=== PATIENT | female | born 1960 | race Caucasian/White ===

== ENCOUNTER → 2016-09-27 | Outpatient (CLI) | payer MEDICARE, OTHER ==
[~2016-09-27] MED LIST: ACETAMINOPHEN650 M1 PO; ADDERALL; ADDERALL 20 MG20 M1 PO; ADDERALL 30 MG30 M1 PO; ALBUTEROL17 GM INH; BACTRIM DS TABL1 TA1 PO; CALCIUM 600 MG; CRESTOR10 MG PO; EFFEXOR; EFFEXOR50 MG PO; FLONASE 0.05% N16 G1; FORTAMET1000 MG/B1; KEFLEX500 MG PO; LAMICTAL; LAMICTAL PO; LANTUS SOLOSTAR3 ML SUBQ; LANTUS100 U/M1; LATUDA20 MG PO; LEVEMIR; LIPITOR; LIPITOR40 MG PO; LISINOPRIL-HCTZ1 T14; LISINOPRIL-HCTZ1 T14 PO; LORTAB 5/500 TA1 TA1 PO; LYRICA100 MG PO; LYRICA50 MG PO; METFORMIN HCL1000 M1 PO; NEURONTIN; NEURONTIN600 MG PO; NEURONTIN800 MG PO; ORUDIS75 M1 PO; PERCOCET 10/3251 TAB; SINGULAIR PO; SYMBICORT 16010.2 GM INH; TAB A VITE1 EACH; VISTARIL50 MG PO
[2016-09-27 12:44] LABS: BUN/CREATININE RATIO 37.5; CALCIUM SERUM 9.8 mg/dL (8.4-10.2); CREATININE SERUM 0.8 mg/dL (0.6-1.4); GLOM FILT RATE Estimated 82.5 mL/min (>60); POTASSIUM 4.5 mmol/L (3.5-5.1)
== END | disposition home or self-care (01) ==
LOC: CLAB 11:54
PROVIDERS: Internal Medicine Interventional Cardiology
DX: I10 Essential (primary) hypertension (principal); I73.9 Peripheral vascular disease, unspecified
CPT/HCPCS: 36415; 80048

== ENCOUNTER → 2016-10-01 | Outpatient (CLI) | payer MEDICARE, OTHER ==
--- NOTE | ~2016-10-01 | US136 ---
[facility] A Service of [facility] & [facility] RADIOLOGY TEXT RESULTS PATIENT: FRANCESCA AUGUST LOCATION: CNIV : 60 UNIT #: [id number] AGE: [address]: ALEXIS MUELLER MD SEX: F ORDER DR: [id number] [facility] [address] [place], [place] [address] [id number] O MR#: [id number] Acc #: [id number] NAME: FRANCESCA AUGUST : 1960 SEX: F STUDY DATE/TIME: 10/01/2016 14:03 UNIT: CNIV ROOM: STUDY DESCRIPTION: US U/L Ext Art Study [facility] Attending Physician: Alexis Mueller M.D. Referring Physician: Alexis Mueller M.D. Primary Care Physician: Tere Patrick M.D. MEDICAL IMAGING REPORT This report is preliminary unless electronic signature is present EXAM Bilateral ankle-brachial indices INDICATION Claudication. This has been present for 1 year. It is more pronounced on the left. She reports left foot and calf pain. TECHNIQUE Sequential pressures were obtained through both lower extremities and pulse volume recordings were generated. Patient also underwent exercise testing as well. FINDINGS Resting ankle-brachial indices are normal bilaterally measuring 1.03 at the dorsalis pedis artery on the right and 1.15 at the posterior tibial artery on the right. The ankle-brachial index at the posterior tibial artery on the left is 1.09 and at the dorsalis pedis artery on the left is 1.11. Toe-brachial indices are normal at 0.82 on the right and 0.80 on the left and certainly the waveform appears triphasic on the pulse volume recordings. The patient does have some mild decrease in the pressure on the left at 1 minute and 49 seconds, however, ankle-brachial index actually increases and this is of doubtful clinical significance, especially given the normal appearance of the pulse volume recordings and the normal resting ankle-brachial indices. IMPRESSION No convincing evidence of significant peripheral arterial disease. Dictated by... Lina Goodrich M.D. THIS IS AN ELECTRONICALLY VERIFIED REPORT Lina Goodrich M.D. at 10/03/2016 1:16 [facility] A Service of [facility] RADIOLOGY TEXT RESULTS PATIENT: FRANCESCA AUGUST LOCATION: CNIV : 60 UNIT #: [id number] AGE: [address]: ALEXIS MUELLER MD SEX: F ORDER DR: Beatris TD: 10/03/2016 11:56 JOB #: [id number] MEDICAL IMAGING REPORT Page 1 of 1 COPY
== END | disposition home or self-care (01) ==
LOC: CNIV 13:50
DX: I73.9 Peripheral vascular disease, unspecified (principal)
CPT/HCPCS: 93922

== ENCOUNTER → 2016-10-17 | Outpatient (CLI) | payer MEDICARE, OTHER ==
--- NOTE | ~2016-10-17 | TH ---
Unit #: [id number] #: [id number] Patient: FRANCESCA AUGUST [id number] [facility]. [place], [place] [address] [id number] O MR#: [id number] NAME: FRANCESCA AUGUST : 1960 SEX: F STUDY DATE/TIME: 10/17/2016 UNIT: CNUC ROOM: STUDY DESCRIPTION: Stress nuclear and ECG comb. Attending Physician: Evi Mena M.D. Primary Care Physician: Tere Patrick M.D. CARDIOLOGY REPORT EXAM Stress nuclear and ECG combined. INDICATIONS Abnormal ECG, chest tightness, shortness of breath, inability to exercise adequately, with a history of hypertension, dyslipidemia, diabetes, asthma, and a family history of coronary disease. SUMMARY The patent was given Lexiscan intravenously while at rest, as well as Technetium 99 Cardiolite, 10.63 and 34.2 mCi at rest and stress respectively. Appropriate views were obtained. FINDINGS The resting ECG was abnormal, with biphasic T wave V3 and V4, and 0.[address] depression, leads 2, 3, AVF, V3 through V6. T waves were also inverted in leads 1 and AVL. With stress there were no diagnostic ST shifts, no pseudonormalization, and no significant dysrhythmias. The heart rate increased from 90 to 98, blood pressure decreased 132/82 to 123/76. Patient did not experience any symptoms. Perfusion images demonstrate severe decrease in perfusion at the apex at rest, with diffuse intestinal artifact at both rest and stress. With stress the apical perfusion appears nearly normal. Otherwise perfusion is normal and equivalent between rest and stress. Gated perfusion wall motion analysis demonstrates upper normal LV size, and generally poor uptake. End-diastolic volume is 111 mL, with no wall motion abnormalities. Ejection fraction 64%. Planar images demonstrate no significant patient motion neither at rest or stress. There was no significant lung uptake, LV or RV enlargement. There was considerable breast attenuation artifact both at rest and stress. Summed stress scores is 2. Summed difference scores is 0. IMPRESSION 1. Myocardial perfusion scan shows no ischemia or infarction. 2. Upper to normal to mildly enlarged LV, with overall normal function, and no wall motion abnormalities. 3. Abnormal nondiagnostic stress ECG, possibly related to LVH. 1. Dictated by... Erickson Hall M.D. Unit #: [id number] #: [id number] Patient: FRANCESCA AUGUST PANFILO PARKS/ts TD: 10/17/2016 13:19 JOB #: [id number] CARDIOLOGY REPORT Page 1 of 1 X Erickson Hall MD CARDIOLOGY REPORT
== END | disposition home or self-care (01) ==
LOC: CNUC 07:48
DX: I73.9 Peripheral vascular disease, unspecified (principal); R94.31 Abnormal electrocardiogram [ECG] [EKG]; I51.7 Cardiomegaly
CPT/HCPCS: 78452; 93017; 93306; A9500; J2785